=== PATIENT | female | born 2000 | race Caucasian/White ===

== ENCOUNTER 2022-01-18 15:14 | Emergency (ER) | payer BC, SELFPAY ==
[2022-01-18 15:29] VITALS: BP 121/75; PULSE 95; RESP 16; TEMP 36.7; O2SAT 97; BMI 31.6
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
== END 2022-01-18 16:11 | disposition home or self-care (01) ==
PROVIDERS: Emergency Provider Emergency Medicine
DX: O9A.211 Injury, poisoning and certain other consequences of external causes complicating pregnancy, first trimester (principal); S29.012A Strain of muscle and tendon of back wall of thorax, initial encounter; T14.8XXA Other injury of unspecified body region, initial encounter; Z3A.10 10 weeks gestation of pregnancy; V89.2XXA Person injured in unspecified motor-vehicle accident, traffic, initial encounter
CPT/HCPCS: 99282

== ENCOUNTER 2022-01-19 19:01 | Emergency (ER) | payer BC, SELFPAY ==
[2022-01-19 19:04] VITALS: BMI 31.6
[2022-01-19 19:08] VITALS: BP 111/78; PULSE 99; RESP 15; TEMP 36.6; O2SAT 98
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
[2022-01-19] MEDS: sodium chloride 0.9% 1,000 ML 999 ML IV (20:28)
[2022-01-19 20:32] VITALS: BP 117/74; PULSE 86; O2SAT 99
[2022-01-19 20:38] VITALS: RESP 18
[2022-01-19] MEDS: morphine 4 mg/mL SDV 1 mL 2 MG IVP (20:38)
[2022-01-19] MEDS: diphenhydrAMINE 50 mg/mL SDV 1mL 25 MG IVP (20:38)
[2022-01-19] MEDS: metoclopramide 5 mg/mL SDV 2 mL 10 MG IVP (20:38)
[2022-01-19 21:34] VITALS: BP 106/70; PULSE 80; O2SAT 99
== END 2022-01-19 21:40 | disposition home or self-care (01) ==
PROVIDERS: Emergency Provider Nurse Practitioner Family
DX: G44.209 Tension-type headache, unspecified, not intractable (principal)
CPT/HCPCS: 96374; 96375; 99284; J1200; J2270; J2765; J7030

== ENCOUNTER → 2022-01-26 10:10 | Outpatient (BNVA) | payer BC, SELFPAY | PROVIDERS: Visit Provider Obstetrics & Gynecology | DX: Z34.90 Encounter for supervision of normal pregnancy, unspecified, unspecified trimester (principal) | CPT/HCPCS: 80307; 84315; 84443; 85025; 86592; 86762; 86803; 86850; 86900; 87086; 87340; 87806; 88175 ==

== ENCOUNTER → 2022-02-25 09:32 | Outpatient (BNVA) | payer BC, SELFPAY | PROVIDERS: Visit Provider Obstetrics & Gynecology | DX: Z34.90 Encounter for supervision of normal pregnancy, unspecified, unspecified trimester (principal) | CPT/HCPCS: 84315; 87086 ==

== ENCOUNTER → 2022-03-11 15:44 | Outpatient (BNVA) | payer BC, SELFPAY | PROVIDERS: Visit Provider Obstetrics & Gynecology | DX: Z34.90 Encounter for supervision of normal pregnancy, unspecified, unspecified trimester (principal) | CPT/HCPCS: 87086 ==

== ENCOUNTER 2022-03-24 22:54 | Emergency (ER) | payer BC, SELFPAY ==
[2022-03-24 23:03] VITALS: BP 134/91; PULSE 105; RESP 18; TEMP 36.7; O2SAT 98; BMI 32.8
[2022-03-24 23:46] LABS: Basophils % 0.2 %; Eosinophils # 0.2 10^3/uL (0.0-0.8); Eosinophils % 1.6 %; Hematocrit 31.5 % (37.0-47.0); Hemoglobin 10.7 g/dL (11.5-15.3); Lymphocytes # 2.6 10^3/uL (0.8-4.8); Lymphocytes % 24.8 %; Mean Corpuscular Hemoglobin 30.4 pg (28.0-34.0); Mean Corpuscular Volume 89.5 fl (81-99); Mean Platelet Volume 11.1 fL (7.4-10.4); Monocytes # 0.9 10^3/uL (0.2-0.9); Nucleated Red Blood Cells % 0 %; Platelet Count 216 10^3/cmm (130-400); Red Blood Count 3.52 10^6/uL (4.1-5.3); Red Cell Distribution Width 12.7 % (12.1-15.1); White Blood Count 10.6 10^3/uL (4.0-10.0)
[2022-03-24 23:47] LABS: Urine Appearance Clear (CLEAR); Urine Color Yellow (Yellow); pH Urine 6.5 (5-7)
[2022-03-24 23:48] LABS: Add Urine Culture? No; Add Urine Microscopic? YES; Bilirubin Urine Neg (Negative); Blood Urine 3+ (Negative); Glucose Urine UA Norm (Normal); Ketones Urine Negative (Negative); Leukocyte Esterase Urine Negative (Negative); Nitrate Urine Negative (Negative); Protein Urine Neg (Negative); RBC Urine TOO NUMEROUS TO CNT /hpf (0-2); Specific Gravity, Urine 1.015 (1.005-1.030); Squamous Epithelial Cell Urine 0-4 /hpf (0-5); Urobilinogen Urine Norm (Negative)
[2022-03-25 00:05] LABS: Alanine Aminotransferase 13 U/L (0-33); Albumin Level 3.6 g/dL (3.5-5.2); Alkaline Phosphatase 57 U/L (35-105); Anion Gap 12.6 (5-19); Aspartate Amino Transferase 13 U/L (0-32); Blood Urea Nitrogen 9 mg/dL (6-20); Calcium 9.2 mg/dL (8.5-10.5); Carbon Dioxide 24 mmol/L (22-29); Chloride 104 mmol/L (98-107); Globulin 2.2 g/dL (1.3-4.6); Glomerular Filtration Rate 152.9 mL/min (90-130); Glucose 90 mg/dL (65-115); Lipase 34 U/L (13-60); Osmolality Calculated 282 mOsm/kg (285-295); Potassium 3.6 mmol/L (3.5-5.1); Sodium 137 mmol/L (136-145); Total Bilirubin 0.2 mg/dL (0.15-1.2); Total Protein 5.8 g/dL (6.6-8.7)
--- NOTE | 2022-03-25 00:10 | USR_ITS ---
PROCEDURE INFORMATION: Exam: US Retroperitoneal; Complete; Kidneys and Bladder Exam date and time: 03/25/2022 12:12 AM Age: 21 years old Clinical indication: Abdominal pain; Right upper quadrant (ruq); ; Patient HX: Patient g1-p0 with canelo = 08/13/2022 19w 6d presenting with right flank pain today. No gross hematuria per patient. No history of renal calculi per patient. TECHNIQUE: Imaging protocol: Real-time ultrasound of the retroperitoneum with image documentation. Complete exam focused on the kidneys and bladder. COMPARISON: No relevant prior studies available. FINDINGS: The right kidney measures 10.5 cm in length. The left kidney measures 10.9 cm in length. Borderline/mild right hydronephrosis, significance uncertain. Possibly this could be secondary to hydronephrosis of . An occult right ureteral calculus or pyelonephritis might also be considered. Please correlate clinically. There is no left hydronephrosis. No perinephric fluid. Neither ureter is definitely visible. The renal parenchymal thickness and echogenicity are within normal limits. There is no sonographically visible renal calculus, mass, or cyst. Bilateral ureteral jets identified in the urinary bladder. The included images of the urinary bladder appear essentially unremarkable. US/US renal BI with PV bladder IMPRESSION: 1. Borderline/mild right hydronephrosis, see above discussion. 2. Otherwise, essentially unremarkable sonographic appearance of the kidneys. 3. Other details discussed above.
--- NOTE | 2022-03-25 01:19 | W.ED.FEMALGU ---
Documented by User: [email or web address] Jang 03/25/22 01:52 HPI - Female Genitourinary General: Chief complaint: Urogenital-Female Stated complaint: 19 wks Preg\Kidney Pain Time Seen by Provider: 03/24/22 23:19 History of Present Illness: Patient reports that she is 19 weeks . Suddenly at 3:00 today she started having right lower quadrant abdominal pain that is radiated to her right back. He is concerned that it is her kidney. She reports some dysuria today. She does report that she urinates a lot but she is . She denies any vaginal discharge, bleeding. She denies any blood in her urine however she states that at the urgent care she did have blood in her urine that was microscopic. She denies any fever, chills. She has had some nausea but that seems to be resolving. This is her first . She reports that she is feeling good baby movement. She reports that she has been having some tightening of her abdominal muscles for a couple of days which she attributed to [place]. She reports that for the past days she has been having cramping lower abdominal. Associated symptoms: Reports abdominal pain and nausea Date of Last Menstrual Period: 11/06/21 Review of Systems Const: Denies: fever(s) or chills Card: Denies: chest pain or palpitations Resp: Denies: dyspnea or wheezing GI: Reports: abdominal pain and nausea; Denies: vomiting, hematemesis, diarrhea or constipation : Reports: flank pain and dysuria; Denies: difficulty voiding PFS ED PFSH: Medical History Ovarian cyst Surgical History No pertinent past surgical history Family History Father Hypertension Diabetes Denies family history of Colon cancer Ovarian cancer Heart disease Hypercholesteremia Breast cancer Uterine cancer Thyroid disease Stroke Social History Smoking and tobacco status: former smoker Female Reproductive History: Date of last menstrual period: 11/06/21 Physical Exam Const: COMMON NORMALS: no acute distress, patient oriented x3 and alert Resp: COMMON NORMALS: normal respiratory effort, No use of accessory muscles and clear to auscultation bilaterally AUSCULTATION: clear to auscultation bilaterally Cardio: COMMON NORMALS: regular rate, regular rhythm, S1 normal heart sound present and S2 normal heart sound present RATE: regular rate RHYTHM: regular rhythm HEART SOUNDS: S1 normal heart sound present and S2 normal heart sound present GI: COMMON NORMALS: Soft to palpation INSPECTION: Yes gravid abdomen AUSCULTATION: Yes normoactive bowel sounds PALPATION: Yes Soft to palpation and Yes Tenderness to palpation present (GI) Details: RLQ OTHER: Tenderness to palpation right lower quadrant abdomen. This is still soft. No rebound or guarding. Negative obturator sign however patient reports more pressure with raising the leg. Neuro: COMMON NORMALS: patient oriented x3 SENSORIUM/ORIENTATION: Yes alert Course Vital Signs: Vital signs: Vital Signs Temperature 98.1 F 03/24/22 23:03 Pulse Rate 99 03/25/22 01:59 Respiratory Rate 16 03/25/22 01:59 Blood Pressure 123/81 03/25/22 01:59 Pulse Oximetry 99 03/25/22 01:59 Oxygen Delivery Me thod 03/24/22 23:03 MDM - Female Medical Decision Making 21-year-old female 19 weeks in for acute right lower quadrant abdominal pain and right-sided flank pain. White blood cell count is minimally elevated, urine is positive for hematuria no evidence of acute bacterial infection. Ultrasound right-sided kidney shows mild right hydronephrosis which could be associated with a recently passed calculi. I discussed the case, at length, with Dr. Perkins who examined the patient. He discussed differentials including appendicitis. Patient is not showing significant abdominal pain, or peritoneal signs that would raise suspicion for acute appendicitis. Patient actually reports her symptoms are improving somewhat. Discussed conservative treatment at home. Patient has an upcoming follow-up with [facility] TECHNICIAN on Wednesday. Encourage patient to keep [facility] TECHN[facility] appointment. Return to ER for any new or worsening symptoms. Patient and significant other are agreeable. All questions answered to satisfaction. Lab Data : 03/24/22 23:42 03/24/22 23:42 Radiology Impressions Renal Ultrasound 03/25/22 00:10 IMPRESSION: 1. Borderline/mild right hydronephrosis, see above discussion. 2. Otherwise, essentially unremarkable sonographic appearance of the kidneys. 3. Other details discussed above. Laboratory Results WBC 10.6 10^3/uL (4.0-10.0) H 03/24/22 23:42 RBC 3.52 10^6/uL (4.1-5.3) L 03/24/22 23:42 Hgb 10.7 g/dL (11.5-15.3) L 03/24/22 23:42 Hct 31.5 % (37.0-47.0) L 03/24/22 23:42 MCV 89.5 fl (81-99) 03/24/22 23:42 MCH 30.4 pg (28.0-34.0) 03/24/22 23:42 MCHC 34.0 g/dL (30.0-36.0) 03/24/22 23:42 RDW 12.7 % (12.1-15.1) 03/24/22 23:42 Plt Count 216 10^3/cmm (130-400) 03/24/22 23:42 MPV 11.1 fL (7.4-10.4) H 03/24/22 23:42 Neut % (Auto) 65.0 % 03/24/22 23:42 Lymph % (Auto) 24.8 % 03/24/22 23:42 [place] % (Auto) 8.0 % 03/24/22 23:42 Eos % (Auto) 1.6 % 03/24/22 23:42 Baso % (Auto) 0.2 % 03/24/22 23:42 Neut # (Auto) 6.90 10^3/uL (1.8-7.7) 03/24/22 23:42 Lymph # (Auto) 2.6 10^3/uL (0.8-4.8) 03/24/22 23:42 [place] # (Auto) 0.9 10^3/uL (0.2-0.9) 03/24/22 23:42 Eos # (Auto) 0.2 10^3/uL (0.0-0.8) 03/24/22 23:42 Baso # (Auto) 0.0 10^3/uL (0.0-0.1) 03/24/22 23:42 Nucleated RBC % (auto) 0 % 03/24/22 23:42 Nucleated RBCs # 0.0 /100WBC 03/24/22 23:42 Sodium 137 mmol/L (136-145) 03/24/22 23:42 Potassium 3.6 mmol/L (3.5-5.1) 03/24/22 23:42 Chloride 104 mmol/L (98-107) 03/24/22 23:42 Carbon Dioxide 24 mmol/L (22-29) 03/24/22 23:42 Anion Gap 12.6 (5-19) 03/24/22 23:42 BUN 9 mg/dL (6-20) 03/24/22 23:42 Creatinine 0.5 mg/dL (0.5-0.9) 03/24/22 23:42 GFR Calculation 152.9 mL/min (90-130) H 03/24/22 23:42 Glucose 90 mg/dL (65-115) 03/24/22 23:42 Calculated Osmolality 282 mOsm/kg (285-295) L 03/24/22 23:42 Calcium 9.2 mg/dL (8.5-10.5) 03/24/22 23:42 Total Bilirubin 0.2 mg/dL (0.15-1.2) 03/24/22 23:42 AST 13 U/L (0-32) 03/24/22 23:42 ALT 13 U/L (0-33) 03/24/22 23:42 Alkaline Phosphatase 57 U/L (35-105) 03/24/22 23:42 Total Protein 5.8 g/dL (6.6-8.7) L 03/24/22 23:42 Albumin 3.6 g/dL (3.5-5.2) 03/24/22 23:42 Globulin 2.2 g/dL (1.3-4.6) 03/24/22 23:42 Lipase 34 U/L (13-60) 03/24/22 23:42 Urine Color Yellow (Yellow) 03/24/22 23: Urine Appearance Clear (CLEAR) 03/24/22 23: Urine pH 6.5 (5-7) 03/24/22 23: Ur Specific [place] 1.015 (1.005-1.030) 03/24/22 23: Urine Protein Neg (Negative) 03/24/22 23:07 Urine Glucose (UA) Norm (Normal) 03/24/22 23:07 Urine Ketones Negative (Negative) 03/24/22 23:07 Urine Blood 3+ (Negative) H 03/24/22 23:07 Urine Nitrate Negative (Negative) 03/24/22 23:07 Urine Bilirubin Neg (Negative) 03/24/22 23:07 Urine Urobilinogen Norm mg/dL (Negative) 03/24/22 23:07 Ur Leukocyte Esterase Negative (Negative) 03/24/22 23:07 Urine RBC Too numerous to cnt /hpf (0-2) H 03/24/22 23:07 Urine WBC None /hpf (0-5) 03/24/22 23:07 Ur Squamous Epith Cells 0-4 /hpf (0-5) H 03/24/22 23:07 Amorphous Sediment Not Reportable 03/24/22 23:07 Urine Bacteria None /hpf (NONE) 03/24/22 23:07 Discharge Plan Discharge Patient Disposition: Home Clinical Impression: Acute flank pain, Hydronephrosis of right kidney Condition: Stable Prescriptions: No Action cyclobenzaprine 7.5 mg tablet 7.5 mg PO TID Qty: 90 1RF metoclopramide HCl 10 mg tablet 10 mg PO Q6H PRN (Reason: nausea and vomiting) Qty: 120 2RF ondansetron HCl 4 mg tablet 4 mg PO TID PRN (Reason: Nausea And Vomiting) Qty: 30 2RF prenat.vits,joanne,[id number] Tablet 1 tab PO DAILY acetaminophen [Tylenol] 325 mg Capsule 650 mg PO Q6H PRN (Reason: Pain) [place] 3 Fish Oil 684-1,200 mg Capsule,Delayed Release(Dr/Ec) 1 cap PO DAILY Probiotic 20 billion cell Capsule 20,000 mmu cells PO DAILY Rx Instructions: administer with a meal Discharge Orders: Discharge ED (Routine); Ordered 03/25/22 Ordered By: Madalyn Bradshaw Referrals: Tom Paul MD [Primary Care Provider] - Discharge Diet: Usual diet Discharge Activity: Increase activity as tolerated Patient Instructions: Flank Pain (ED) Activity Restrictions/Additional Instructions: You may use Tylenol at home as needed for pain. Call tomorrow and advise your [facility] L[facility] TECHNICIAN of your recent ER visit. Keep your follow-up appointment on Wednesday unless they would like to see you sooner. Return to the ER for any new or worsening symptoms. Coding Level of Care Code ED [employer] for Chg Fwd Exam Expanded Problem Focused Documented by User: Judith Perkins MD 03/25/22 02:23 HPI - Female Genitourinary General: Chief complaint: Urogenital-Female Stated complaint: 19 wks Preg\Kidney Pain Time Seen by Provider: 03/24/22 23:19 [facility] ED PFSH: Medical History Ovarian cyst Surgical History No pertinent past surgical history Family History Father Hypertension Diabetes Denies family history of Colon cancer Ovarian cancer Heart disease Hypercholesteremia Breast cancer Uterine cancer Thyroid disease Stroke Social History Smoking and tobacco status: former smoker Course Vital Signs: Vital signs: Vital Signs Temperature 98.1 F 03/24/22 23:03 Pulse Rate 99 03/25/22 01:59 Respiratory Rate 16 03/25/22 01:59 Blood Pressure 123/81 03/25/22 01:59 Pulse Oximetry 99 03/25/22 01:59 Oxygen Delivery Me thod 03/24/22 23:03 MDM - Female Medical Decision Making 21-year-old female 19 weeks in for acute right lower quadrant abdominal pain and right-sided flank pain. White blood cell count is minimally elevated, urine is positive for hematuria no evidence of acute bacterial infection. Ultrasound right-sided kidney shows mild right hydronephrosis which could be associated with a recently passed calculi. I discussed the case, at length, with Dr. Perkins who examined the patient. He discussed differentials including appendicitis. Patient is not showing significant abdominal pain, or peritoneal signs that would raise suspicion for acute appendicitis. Patient actually reports her symptoms are improving somewhat. Discussed conservative treatment at home. Patient has an upcoming follow-up with [facility] TECHNICIAN on Wednesday. Encourage patient to keep [facility] L[facility] TECHNICIAN appointment. Return to ER for any new or worsening symptoms. Patient and significant other are agreeable. All questions answered to satisfaction. I saw patient examined her as well with above midlevel. On my abdominal exam at discharge she had no tenderness in her right lower quadrant no signs of appendicitis her white count here is normal her flank pain is resolved she possibly could have passed a kidney stone causing her hematuria she has had no vaginal bleeding she has an appoint with her OB on Wednesday she is to follow-up and return if worsening she understands agrees to plan. Lab Data : 03/24/22 23:42 03/24/22 23:42 Radiology Impressions Renal Ultrasound 03/25/22 00:10 IMPRESSION: 1. Borderline/mild right hydronephrosis, see above discussion. 2. Otherwise, essentially unremarkable sonographic appearance of the kidneys. 3. Other details discussed above. Laboratory Results WBC 10.6 10^3/uL (4.0-10.0) H 03/24/22 23:42 RBC 3.52 10^6/uL (4.1-5.3) L 03/24/22 23:42 Hgb 10.7 g/dL (11.5-15.3) L 03/24/22 23:42 Hct 31.5 % (37.0-47.0) L 03/24/22 23:42 MCV 89.5 fl (81-99) 03/24/22 23:42 MCH 30.4 pg (28.0-34.0) 03/24/22 23:42 MCHC 34.0 g/dL (30.0-36.0) 03/24/22 23:42 RDW 12.7 % (12.1-15.1) 03/24/22 23:42 Plt Count 216 10^3/cmm (130-400) 03/24/22 23:42 MPV 11.1 fL (7.4-10.4) H 03/24/22 23:42 Neut % (Auto) 65.0 % 03/24/22 23:42 Lymph % (Auto) 24.8 % 03/24/22 23:42 [place] % (Auto) 8.0 % 03/24/22 23:42 Eos % (Auto) 1.6 % 03/24/22 23:42 Baso % (Auto) 0.2 % 03/24/22 23:42 Neut # (Auto) 6.90 10^3/uL (1.8-7.7) 03/24/22 23:42 Lymph # (Auto) 2.6 10^3/uL (0.8-4.8) 03/24/22 23:42 [place] # (Auto) 0.9 10^3/uL (0.2-0.9) 03/24/22 23:42 Eos # (Auto) 0.2 10^3/uL (0.0-0.8) 03/24/22 23:42 Baso # (Auto) 0.0 10^3/uL (0.0-0.1) 03/24/22 23:42 Nucleated RBC % (auto) 0 % 03/24/22 23:42 Nucleated RBCs # 0.0 /100WBC 03/24/22 23:42 Sodium 137 mmol/L (136-145) 03/24/22 23:42 Potassium 3.6 mmol/L (3.5-5.1) 03/24/22 23:42 Chloride 104 mmol/L (98-107) 03/24/22 23:42 Carbon Dioxide 24 mmol/L (22-29) 03/24/22 23:42 Anion Gap 12.6 (5-19) 03/24/22 23:42 BUN 9 mg/dL (6-20) 03/24/22 23:42 Creatinine 0.5 mg/dL (0.5-0.9) 03/24/22 23:42 GFR Calculation 152.9 mL/min (90-130) H 03/24/22 23:42 Glucose 90 mg/dL (65-115) 03/24/22 23:42 Calculated Osmolality 282 mOsm/kg (285-295) L 03/24/22 23:42 Calcium 9.2 mg/dL (8.5-10.5) 03/24/22 23:42 Total Bilirubin 0.2 mg/dL (0.15-1.2) 03/24/22 23:42 AST 13 U/L (0-32) 03/24/22 23:42 ALT 13 U/L (0-33) 03/24/22 23:42 Alkaline Phosphatase 57 U/L (35-105) 03/24/22 23:42 Total Protein 5.8 g/dL (6.6-8.7) L 03/24/22 23:42 Albumin 3.6 g/dL (3.5-5.2) 03/24/22 23:42 Globulin 2.2 g/dL (1.3-4.6) 03/24/22 23:42 Lipase 34 U/L (13-60) 03/24/22 23:42 Urine Color Yellow (Yellow) 03/24/22 23:07 Urine Appearance Clear (CLEAR) 03/24/22 23:07 Urine pH 6.5 (5-7) 03/24/22 23:07 Ur Specific [place] 1.015 (1.005-1.030) 03/24/22 23:07 Urine Protein Neg (Negative) 03/24/22 23:07 Urine Glucose (UA) Norm (Normal) 03/24/22 23:07 Urine Ketones Negative (Negative) 03/24/22 23:07 Urine Blood 3+ (Negative) H 03/24/22 23:07 Urine Nitrate Negative (Negative) 03/24/22 23:07 Urine Bilirubin Neg (Negative) 03/24/22 23:07 Urine Urobilinogen Norm mg/dL (Negative) 03/24/22 23:07 Ur Leukocyte Esterase Negative (Negative) 03/24/22 23:07 Urine RBC Too numerous to cnt /hpf (0-2) H 03/24/22 23:07 Urine WBC None /hpf (0-5) 03/24/22 23:07 Ur Squamous Epith Cells 0-4 /hpf (0-5) H 03/24/22 23:07 Amorphous Sediment Not Reportable 03/24/22 23:07 Urine Bacteria None /hpf (NONE) 03/24/22 23:07 Discharge Plan Discharge Patient Disposition: Home Clinical Impression: Acute flank pain, Hydronephrosis of right kidney Condition: Stable Prescriptions: No Action cyclobenzaprine 7.5 mg tablet 7.5 mg PO TID Qty: 90 1RF metoclopramide HCl 10 mg tablet 10 mg PO Q6H PRN (Reason: nausea and vomiting) Qty: 120 2RF ondansetron HCl 4 mg tablet 4 mg PO TID PRN (Reason: Nausea And Vomiting) Qty: 30 2RF prenat.vits,joanne,[id number] Tablet 1 tab PO DAILY acetaminophen [Tylenol] 325 mg Capsule 650 mg PO Q6H PRN (Reason: Pain) [place] 3 Fish Oil 684-1,200 mg Capsule,Delayed Release(Dr/Ec) 1 cap PO DAILY Probiotic 20 billion cell Capsule 20,000 mmu cells PO DAILY Rx Instructions: administer with a meal Discharge Orders: Discharge ED (Routine); Ordered 03/25/22 Ordered By: Madalyn Bradshaw Referrals: Tom Paul MD [Primary Care Provider] - Discharge Diet: Usual diet Discharge Activity: Increase activity as tolerated Patient Instructions: Flank Pain (ED) Activity Restrictions/Additional Instructions: You may use Tylenol at home as needed for pain. Call tomorrow and advise your [facility] L[employer] TECHNICIAN of your recent ER visit. Keep your follow-up appointment on Wednesday unless they would like to see you sooner. Return to the ER for any new or worsening symptoms. Coding Level of Care Code ED [employer] for Chg Fwd Exam Expanded Problem Focused
[2022-03-25 01:59] VITALS: BP 123/81; PULSE 99; RESP 16; O2SAT 99
== END 2022-03-25 01:58 | disposition home or self-care (01) ==
PROVIDERS: Emergency Provider Nurse Practitioner Family; PCP Obstetrics & Gynecology
DX: O99.891 Other specified diseases and conditions complicating pregnancy (principal); N13.30 Unspecified hydronephrosis; Z3A.19 19 weeks gestation of pregnancy; Z87.891 Personal history of nicotine dependence
CPT/HCPCS: 76770; 76857; 80053; 81001; 83690; 85025; 87086; 99284

== ENCOUNTER → 2022-03-30 14:00 | Outpatient (BNVA) | payer BC, SELFPAY | PROVIDERS: PCP Obstetrics & Gynecology; Visit Provider Obstetrics & Gynecology | DX: Z34.90 Encounter for supervision of normal pregnancy, unspecified, unspecified trimester (principal) | CPT/HCPCS: 81000; 87086 ==

== ENCOUNTER → 2022-04-29 10:26 | Outpatient (BNVA) | payer BC, SELFPAY | PROVIDERS: PCP Obstetrics & Gynecology; Visit Provider Obstetrics & Gynecology | DX: Z34.90 Encounter for supervision of normal pregnancy, unspecified, unspecified trimester (principal) | CPT/HCPCS: 81000; 87086; 87491; 87591; 87661 ==